=== PATIENT | female | born 1980 | race Caucasian/White ===

== ENCOUNTER → 2018-10-28 | Outpatient (CLI) | payer OTHER ==
[2018-10-28 08:04] LABS: ABSOLUTE EOSINOPHILS 0.1 thou/uL (0.0-0.7); ABSOLUTE LYMPHOCYTES 1.4 thou/uL (0.8-5.3); ABSOLUTE MONOCYTES 0.2 thou/uL (0.0-1.2); ABSOLUTE NEUTROPHILS 1.7 thou/uL (1.6-8.1); BASOPHILS 1.4 %; EOSINOPHILS 3.2 %; HEMATOCRIT 40.6 % (37.0-47.0); HEMOGLOBIN 13.6 gm/dL (12.0-15.0); LYMPHOCYTES 40.2 %; MCH 30.8 pg (26.0-34.0); MCHC 33.4 g/dL (28.0-37.0); MCV 92.2 fL (80.0-100.0); MONOCYTES 7.2 %; MPV 7.5 fl. (7.2-11.1); NUCLEATED RBCS 0 /100WBC; PLATELET COUNT* 296 thou/uL (150-400); RDW-CV 12.9 % (10.5-14.5); WBC 3.5 thou/uL (4.0-11.0)
[2018-10-28 08:14] LABS: CALCIUM 8.9 mg/dL (8.5-10.1); POTASSIUM 4.2 mmol/L (3.5-5.1); TOTAL BILIRUBIN 0.7 mg/dL (<0.1-1.0); TOTAL PROTEIN 7.7 g/dL (6.4-8.2)
== END ==
LOC: M.LAB 07:45
PROVIDERS: Family Medicine
DX: Z13.29 Encounter for screening for other suspected endocrine disorder (principal); K30 Functional dyspepsia

== ENCOUNTER → 2018-11-06 | Outpatient (CLI) | payer OTHER | LOC: M.ULTRA 16:41 | DX: N83.02 Follicular cyst of left ovary (principal); Z88.8 Allergy status to other drugs, medicaments and biological substances ==

== ENCOUNTER 2019-03-09 11:55 | Emergency (ER) | payer OTHER ==
[~2019-03-09] VITALS: Ht 167.6 cm; Wt 59.0 kg
[2019-03-09] MEDS ORDERED: CYCLOBENZAPRINE5 MG PO (14:46)
[2019-03-09] MEDS ORDERED: MEDROLDOSEPACK PO (14:46)
[2019-03-09] MEDS ORDERED: NORCO 5-325 TA1 EAC1 PO (14:46)
[2019-03-09 15:02] VITALS: BP 108/71
== END 2019-03-09 15:03 | disposition home or self-care (01) ==
LOC: M.ERS 11:55
DX: S39.012A Strain of muscle, fascia and tendon of lower back, initial encounter (principal); G43.909 Migraine, unspecified, not intractable, without status migrainosus; Z88.6 Allergy status to analgesic agent; W18.39XA Other fall on same level, initial encounter; Y93.89 Activity, other specified; Y92.89 Other specified places as the place of occurrence of the external cause; Y99.8 Other external cause status

== ENCOUNTER → 2019-05-26 | Outpatient (CLI) | payer OTHER ==
[~2019-05-26] MED LIST: CYCLOBENZAPRINE5 MG PO; MEDROLDOSEPACK PO; NORCO 5-325 TA1 EAC1 PO
== END ==
LOC: M.RAD 15:28
DX: M50.122 Cervical disc disorder at C5-C6 level with radiculopathy (principal); M40.292 Other kyphosis, cervical region

== ENCOUNTER → 2019-11-24 | Outpatient (CLI) | payer OTHER | LOC: M.LAB 11:12 | DX: Z11.59 Encounter for screening for other viral diseases (principal); Z20.828 Contact with and (suspected) exposure to other viral communicable diseases ==

== ENCOUNTER → 2020-04-27 | Outpatient (CLI) | payer OTHER ==
[2020-04-27 09:03] LABS: ABSOLUTE BASOPHILS 0.1 thou/uL (0.0-0.2); ABSOLUTE EOSINOPHILS 0.3 thou/uL (0.0-0.7); ABSOLUTE LYMPHOCYTES 1.3 thou/uL (0.8-5.3); ABSOLUTE MONOCYTES 0.3 thou/uL (0.0-1.2); ABSOLUTE NEUTROPHILS 3.1 thou/uL (1.6-8.1); BASOPHILS 1.1 %; HEMATOCRIT 37.3 % (37.0-47.0); HEMOGLOBIN 12.8 gm/dL (12.0-15.0); LYMPHOCYTES 25.8 %; MCH 31.4 pg (26.0-34.0); MCHC 34.3 g/dL (28.0-37.0); MCV 91.4 fL (80.0-100.0); MONOCYTES 6.4 %; NUCLEATED RBCS 0 /100WBC; PLATELET COUNT* 330 thou/uL (150-400); POLYS 60.7 %; RBC 4.08 mil/uL (4.20-5.00); RDW-CV 13.3 % (10.5-14.5); WBC 5.1 thou/uL (4.0-11.0)
[2020-04-27 09:18] LABS: ALBUMIN 4.1 g/dL (3.4-5.0); ALKALINE PHOSPHATASE 70 U/L (46-116); ANION GAP 8 mmol/L (7-16); BUN 10 mg/dL (7-18); CALCIUM 8.7 mg/dL (8.5-10.1); CHLORIDE 103 mmol/L (98-107); CHOLESTEROL 176 mg/dL (<200); CO2 28 mmol/L (21-32); CREATININE 0.9 mg/dL (0.6-1.3); GLUCOSE 91 mg/dL (70-99); HDL CHOLESTEROL 93 mg/dL (>40); LDL CHOLESTEROL 72 mg/dL (<100); POTASSIUM 3.8 mmol/L (3.5-5.1); SGOT 16 U/L (15-37); SGPT 17 U/L (30-65); SODIUM 139 mmol/L (136-145); TC:HDL 1.9 Ratio (Not establshd); TOTAL BILIRUBIN 0.8 mg/dL (<0.1-1.0); TRIGLYCERIDE 59 mg/dL (<150); VLDL 12 mg/dL (<40)
[2020-04-27 09:19] LABS: SERUM ASSESSMENT Clear
[2020-04-27 10:39] LABS: ESR (SEDRATE) 29 mm/hr (0-20)
== END ==
LOC: M.LAB 08:36
PROVIDERS: ATTEND Family Medicine
DX: Z12.31 Encounter for screening mammogram for malignant neoplasm of breast (principal); R07.89 Other chest pain; D64.9 Anemia, unspecified; M25.50 Pain in unspecified joint

== ENCOUNTER → 2020-04-27 | Outpatient (CLI) | payer OTHER | LOC: M.CT 09:35 | PROVIDERS: ATTEND Family Medicine | DX: Z13.6 Encounter for screening for cardiovascular disorders (principal); I25.10 Atherosclerotic heart disease of native coronary artery without angina pectoris ==

== ENCOUNTER → 2020-05-03 | Outpatient (CLI) | payer OTHER ==
[2020-05-04 13:08] LABS: ANA INTERPRETATION Negative (Negative)
== END ==
LOC: M.LAB 08:21
PROVIDERS: ATTEND Family Medicine
DX: M25.50 Pain in unspecified joint (principal)

== ENCOUNTER → 2020-06-12 | Outpatient (CLI) | payer OTHER | LOC: M.RAD 16:58 | PROVIDERS: ATTEND Family Medicine | DX: R07.89 Other chest pain (principal) ==

== ENCOUNTER → 2021-02-20 | Outpatient (CLI) | payer OTHER | LOC: M.ULTRA 07:30 | PROVIDERS: ATTEND Family Medicine | DX: R10.13 Epigastric pain (principal) ==

== ENCOUNTER 2021-02-24 16:00 | Emergency (ER) | payer OTHER ==
[~2021-02-24] VITALS: Ht 167.6 cm; Wt 56.7 kg
[2021-02-24 16:31] LABS: ABSOLUTE EOSINOPHILS 0.3 thou/uL (0.0-0.7); ABSOLUTE LYMPHOCYTES 1.9 thou/uL (0.8-5.3); ABSOLUTE MONOCYTES 0.4 thou/uL (0.0-1.2); BASOPHILS 0.8 %; EOSINOPHILS 4.7 %; HEMATOCRIT 35.9 % (37.0-47.0); HEMOGLOBIN 12.4 gm/dL (12.0-15.0); LYMPHOCYTES 33.8 %; MCHC 34.4 g/dL (28.0-37.0); MCV 90.2 fL (80.0-100.0); MPV 7.3 fl. (7.2-11.1); NUCLEATED RBCS 0 /100WBC; PLATELET COUNT* 286 thou/uL (150-400); POLYS 53.7 %; RBC 3.99 mil/uL (4.20-5.00); RDW-CV 13.8 % (10.5-14.5); WBC 5.5 thou/uL (4.0-11.0)
[2021-02-24 16:39] LABS: CALCIUM 8.3 mg/dL (8.5-10.1); CREATININE 0.9 mg/dL (0.6-1.3); POTASSIUM 3.4 mmol/L (3.5-5.1)
[2021-02-24 16:50] LABS: ALBUMIN 4.1 g/dL (3.4-5.0); TOTAL BILIRUBIN 0.4 mg/dL (<0.1-1.0); TOTAL PROTEIN 7.3 g/dL (6.4-8.2)
[2021-02-24 17:31] VITALS: BP 142/56
--- NOTE | 2021-02-25 13:31 | EKG ---
[place] [address] ELECTROCARDIOGRAM REPORT Name: MATIAS WELLS Room: [facility]#: [id number] Admission: 02/24/21 Attend Phys: Discharge: 02/24/21 Date of : 78 Date of Service: 02/24/21 1607 Report #: [id number] THIS REPORT FOR: //name// [facility] ED Test Date: 2021-02-24 Test Time: 16:07:18 Pat Name: MATIAS WELLS Department: Room: Gender: F Engine Monitor: ZEE : 1980 Requested By: Junior Waterman Order Number: [id number] MD: Allan Gandhi Measurements Intervals [place] Rate: 92 P: 69 WA: 151 QRS: 39 QRSD: 104 T: 34 QT: 339 QTc: 420 Interpretive Statements Sinus rhythm No previous ECG available for comparison Electronically Signed On 02-25-2021 13:31:27 CDT by Allan Gandhi [email or web address] <ELECTRONICALLY SIGNED> By: Allan Gandhi MD, [facility] 02/25/21 1331 160 160 Allan Gandhi MD, FACC /EPI
== END 2021-02-24 17:32 | disposition home or self-care (01) ==
LOC: M.ERS 16:00
PROVIDERS: Physician Assistant
DX: R07.89 Other chest pain (principal); Z20.822 Contact with and (suspected) exposure to COVID-19; R06.02 Shortness of breath; G43.909 Migraine, unspecified, not intractable, without status migrainosus; Z98.890 Other specified postprocedural states; Z88.6 Allergy status to analgesic agent